=== PATIENT | female | born 2000 | race Caucasian/White ===

== ENCOUNTER 2021-12-12 07:29 | Day surgery (SDC) | payer MEDICAID, SELFPAY ==
[~2021-12-12] VITALS: Ht 167.6 cm; Wt 68.5 kg
[2021-12-12 08:04] LABS: HCG,QUAL RESULT NEGATIVE (NEGATIVE)
[2021-12-12] MEDS ORDERED: ACETAMINOPHEN I.V. 1000 MG 100 ML IV ONE (10:09)
[2021-12-12] MEDS ORDERED: LABETALOL 100 MG/ 20ML VIAL IVP PRN (11:00)
[2021-12-12] MEDS ORDERED: MIDAZOLAM HCL 2 MG/2 ML VIAL (VERSED) IVP PRN (11:00)
[2021-12-12] MEDS ORDERED: MEPERIDINE HCL/PF 25 MG/ML DISP.SYRIN IVP PRN (11:00)
[2021-12-12] MEDS ORDERED: LR 1,000 ML IV SCH (11:00)
[2021-12-12] MEDS ORDERED: METOCLOPRAMIDE HCL 10 MG/2 ML VIAL IVP PRN (11:00)
[2021-12-12] MEDS ORDERED: HYDROmorphone 1 MG/ML INJ. CARTRIDGE IVP PRN ×2 (11:00)
[2021-12-12] MEDS ORDERED: BUPIVACAINE /EPINEPHRINE/PF 0.25% 30 ML VIAL INJ ONE (11:33)
[2021-12-12] MEDS ORDERED: DESFLURANE 15 MIN GAS INH ONE (11:33)
[2021-12-12] MEDS ORDERED: ONDANSETRON HCL 4 MG/2 ML VIAL ONE (11:33)
[2021-12-12] MEDS ORDERED: ROCURONIUM BROMIDE 10 MG/ML (ZEMURON) ONE (11:33)
[2021-12-12] MEDS ORDERED: PROPOFOL 200MG/ 20ML VIAL (DIPRIVAN) IV ONE (11:33)
[2021-12-12] MEDS ORDERED: LR 1,000 ML IV.SOLN IV ONE (11:33)
[2021-12-12] MEDS ORDERED: fentaNYL CITRATE/PF 100 MCG/2 ML AMP ONE (11:33)
[2021-12-12] MEDS ORDERED: NS IRRIG SOLN 1000 ML IR ONE (11:33)
[2021-12-12] MEDS ORDERED: MIDAZOLAM HCL 5 MG/ML VIAL (VERSED) IV ONE (11:33)
[2021-12-12] MEDS ORDERED: DEXAMETHASONE SOD PHOSPHATE 4 MG/ML VIAL ONE (11:33)
[2021-12-12] MEDS ORDERED: BACITRACIN 1 GM OINT TP ONE (11:33)
[2021-12-12] MEDS ORDERED: LIDOCAINE 2%, 20 ML MDV ONE (11:33)
[2021-12-12] MEDS ORDERED: SUGAMMADEX SODIUM 200 MG/2 ML VIAL IV ONE (11:33)
[2021-12-12] MEDS ORDERED: HYDROmorphone 1 MG/ML INJ. CARTRIDGE ONE (12:12)
[2021-12-12 16:06] VITALS: BP_SYST 122
== END 2021-12-12 14:15 | disposition home or self-care (01) ==
LOC: SDS 07:29 → SMU 07:33 → SDS 14:15
PROVIDERS: ATTEND Otolaryngology
DX: J35.01 Chronic tonsillitis (principal); D37.09 Neoplasm of uncertain behavior of other specified sites of the oral cavity; G47.9 Sleep disorder, unspecified; Z79.899 Other long term (current) drug therapy; Z20.822 Contact with and (suspected) exposure to COVID-19
CPT/HCPCS: 36415; 42826; 84703; 87426; 88304; J0131; J1100; J1170; J2001; J2250; J2405; J2704; J3010; J3465; J3490 ×2; J7120; U0003